=== PATIENT | female | born 1990 | race Caucasian/White ===

== ENCOUNTER 2017-04-16 00:16 | Emergency (ER) | payer SELFPAY ==
[~2017-04-16] VITALS: Ht 165.1 cm; Wt 54.5 kg
[2017-04-16 00:22] VITALS: BP 102/58; PULSE 58; RESP 18; TEMP 98.2; O2SAT 95
[2017-04-16] MEDS ORDERED: TETANUS/DIPHTHERIA TOXOID ADULT 0.5 ML VIAL IM ONE (00:30)
[2017-04-16 00:46] LABS: AUTOMATED NEUTROPHIL # 6.6 TH/MM3 (1.8-7.7); BASOPHIL # 0.1 TH/MM3 (0-0.2); BASOPHIL % 0.7 % (0.0-2.0); EOSINOPHIL # 0.3 TH/MM3 (0-0.4); EOSINOPHIL % 2.1 % (0.0-4.0); MEAN CELL VOLUME 91.3 FL (80.0-100.0); MEAN CORPUSCULAR HGB CONC 35.1 % (32.0-36.0); MEAN PLATELET VOLUME 8.3 FL (7.0-11.0); MONO % 4.7 % (0.0-8.0); MONOCYTE # 0.6 TH/MM3 (0-0.9); NEUT % 48.5 % (16.0-70.0); PLATELET COUNT 315 TH/MM3 (150-450); RED BLOOD COUNT 4.38 MIL/MM3 (4.00-5.30); RED CELL DISTRIBUTION WIDTH 12.7 % (11.6-17.2); WHITE BLOOD COUNT 13.6 TH/MM3 (4.0-11.0)
[2017-04-16 01:03] LABS: ALBUMIN 4.1 GM/DL (3.4-5.0); ALT (GPT) 25 U/L (10-53); AST (GOT) 33 U/L (15-37); BLOOD UREA NITROGEN 14 MG/DL (7-18); CALCIUM 8.5 MG/DL (8.5-10.1); CHLORIDE 108 MEQ/L (98-107); CREATININE 0.99 MG/DL (0.50-1.00); GLOMERULAR FILTRATION RATE 67 ML/MIN (>89); GLUCOSE,RANDOM 106 MG/DL (74-106); SODIUM (NA) 139 MEQ/L (136-145)
[2017-04-16 01:11] LABS: BASOPHILS 1 % (0-2); LYMPHOCYTES 33 % (9-44); MONOCYTES 1 % (0-8); POLYS (SEG NEUTROPHILS) 61 % (16-70)
[2017-04-16 01:13] LABS: ALKALINE PHOSPHATASE 52 U/L (45-117); TOTAL BILIRUBIN ADULT 0.2 MG/DL (0.2-1.0); TOTAL PROTEIN 8.1 GM/DL (6.4-8.2)
[2017-04-16] MEDS ORDERED: LORazepam 2 MG/ML VIAL IV PUSH ONE (01:15)
[2017-04-16] MEDS ORDERED: HALOPERIDOL LACTATE 5 MG/ML AMP IV ONE (01:15)
[2017-04-16 01:16] LABS: ACETAMINOPHEN LESS THAN 2.0 MCG/ML (10.0-30.0)
[2017-04-16 01:25] LABS: NEUTROPHIL # MANUAL DIFF 8.3 TH/MM3 (1.8-7.7)
--- NOTE | 2017-04-16 01:34 | RADRPT ---
EXAM DATE/TIME: 04/16/2017 00:55 [place] COMPARISON: No previous studies available for comparison. INDICATIONS : Right forearm pain after hitting arm against a drain. MEDICAL HISTORY : None. SURGICAL HISTORY : None. ENCOUNTER: Initial ACUITY: 1 day PAIN SCORE: Non-responsive. LOCATION: Right forearm. FINDINGS: 2 views of the right forearm demonstrate no fracture or dislocation. There is soft tissue irregularit y along the medial and posterior proximal aspect of the forearm with likely an overlying bandage in p lace. There is subcutaneous air along the posterior aspect of the elbow joint. No radiopaque foreign body is seen. CONCLUSION: 1. No fracture is identified. 2. Soft tissue abnormality along the medial and posterior aspect of the proximal forearm with subcuta neous air. No radiopaque foreign body is seen. Willis Quevedo MD on April 16, 2017 at 1:30 Board Certified Radiologist. This report was verified electronically.
--- NOTE | 2017-04-16 02:02 | PD ---
HPI Chief Complaint: Fall Time Seen by Provider: 23:08 Travel History International Travel<30 days: No Contact w/Intl Traveler<30days: No Traveled to known affect area: No History of Present Illness HPI 27-year-old white female presents emergency department by EMS for evaluation of the right arm laceration. The patient is heavily intoxicated and allegedly had fallen down. She is uncooperative to history and exam. Patient is unable to render history allow a physical due to her alcohol intoxication. PFSH Past Medical History Medical History: Denies Significant Hx Tetanus Vaccination: > 5 Years Influenza Vaccination: No ?: Not LMP: 3 weeks ago Past Surgical History Section: Yes Social History Alcohol Use: Yes Tobacco Use: Yes Substance Use: Yes (mj) Allergies-Medications (Allergen,Severity, Reaction): Coded Allergies: No Known Allergies (Unverified , 04/16/17) Reported Meds & Prescriptions Reported Meds & Active Scripts Active Keflex (Cephalexin) 500 Mg Cap 500 Mg PO Q6H 7 Days Review of Systems ROS Limitations: Intoxication Physical Exam Narrative GENERAL: Well-developed, well-nourished in no acute distress. Nontoxic appearing. Smells of EtOH and appears heavily intoxicated with slurred speech. Patient is uncooperative. HEAD: Normocephalic, atraumatic. No evidence of head trauma. EYES: Pupils equal round and reactive. Extraocular motions intact. No scleral icterus. No injection or drainage. ENT: TMs clear without erythema. The external auditory canals clear. Nose: clear . Posterior pharynx is pink and moist. No tonsillar edema or exudate. Uvula midline. Airway patent. NECK: Trachea midline.Supple, nontender, moves head freely. No central bony tenderness or spasm. CARDIOVASCULAR: Regular rate and rhythm without murmurs, gallops, or rubs. RESPIRATORY: Clear to auscultation. Breath sounds equal bilaterally. No wheezes , rales, or rhonchi. GASTROINTESTINAL: Abdomen soft, non-tender, nondistended. No hepato-splenomegaly , or palpable masses. No guarding. EXTREMITIES: No clubbing, cyanosis, or edema. No joint tenderness, effusion, or edema noted. Right arm laceration with a dressing in place. BACK: Nontender without deformity or crepitance. No flank tenderness. Data Data Last Documented VS Vital Signs Date Time Temp Pulse Resp B/P (MAP) Pulse Ox O2 Delivery O2 Flow Rate FiO2 04/16/17 00:22 98.2 58 18 102/58 (73) 95 Orders Orders Complete Blood Count With Diff (04/16/17:28) Comprehensive Metabolic Panel (04/16/17 00:28) Thyroid Stimulating Hormone (04/16/17 00:28) Oximetry (04/16/17 00:28) Iv Access Insert/Monitor (04/16/17:28) Ecg Monitoring (04/16/17:28) Psych Screen (04/16/17 00:28) Drug Screen, Random Urine (04/16/17:28) Forearm (2vws) (04/16/17 ) Tetanus/Diphtheria Tox Adult (Tetanus/Di (04/16/17:30) Ed Urine Pregnancytest Poc (04/16/17 00:28) Alcohol (Ethanol) (04/16/17 00:28) Tylenol (Acetaminophen) (04/16/17:28) Restraints Non-Violent URBANO.Q3H (04/16/17 01:06) Haloperidol Inj (Haldol Inj) (04/16/17 01:15) Lorazepam Inj (Ativan Inj) (04/16/17 01:15) Cefazolin 2 Gm Premix (Ancef 2 Gm Premix (04/16/17 03:15) Labs Laboratory Tests Test 04/16/17 00:30 White Blood Count 13.6 TH/MM3 Red Blood Count 4.38 MIL/MM3 Hemoglobin 14.0 GM/DL Hematocrit 40.0 % Mean Corpuscular Volume 91.3 FL Mean Corpuscular Hemoglobin 32.0 PG Mean Corpuscular Hemoglobin Concent 35.1 % Red Cell Distribution Width 12.7 % Platelet Count 315 TH/MM3 Mean Platelet Volume 8.3 FL Neutrophils (%) (Auto) 48.5 % Lymphocytes (%) (Auto) 44.0 % Monocytes (%) (Auto) 4.7 % Eosinophils (%) (Auto) 2.1 % Basophils (%) (Auto) 0.7 % Neutrophils # (Auto) 6.6 TH/MM3 Lymphocytes # (Auto) 6.0 TH/MM3 Monocytes # (Auto) 0.6 TH/MM3 Eosinophils # (Auto) 0.3 TH/MM3 Basophils # (Auto) 0.1 TH/MM3 CBC Comment AUTO DIFF Differential Total Cells Counted 100 Neutrophils % (Manual) 61 % Lymphocytes % 33 % Monocytes % 1 % Eosinophils % 4 % Basophils % 1 % Neutrophils # (Manual) 8.3 TH/MM3 Differential Comment FINAL DIFF MANUAL Platelet Estimate NORMAL Platelet Morphology Comment NORMAL Red Cell Morphology Comment NORMAL Blood Urea Nitrogen 14 MG/DL Creatinine 0.99 MG/DL Random Glucose 106 MG/DL Total Protein 8.1 GM/DL Albumin 4.1 GM/DL Calcium Level 8.5 MG/DL Alkaline Phosphatase 52 U/L Aspartate Amino Transf (AST/SGOT) 33 U/L Alanine Aminotransferase (ALT/SGPT) 25 U/L Total Bilirubin 0.2 MG/DL Sodium Level 139 MEQ/L Potassium Level 3.3 MEQ/L Chloride Level 108 MEQ/L Carbon Dioxide Level 21.0 MEQ/L Anion Gap 10 MEQ/L Estimat Glomerular Filtration Rate 67 ML/MIN Thyroid Stimulating Hormone 3rd Gen 2.080 uIU/ML Acetaminophen Level LESS THAN 2.0 MCG/ML Ethyl Alcohol Level 377 MG/DL MDM Medical Decision Making Medical Screen Exam Complete: Yes Emergency Medical Condition: Yes Medical Record Reviewed: Yes Differential Diagnosis MDM: High Differential diagnoses: Fracture, sprain, strain, dislocation, contusion, neurovascular injury, intoxication Narrative Course Patient is uncooperative to her history, physical and evaluation today. Due to the patient's heavy alcohol intake she will be placed in nonviolent restraints and given Haldol 5 mg IV and Ativan 1 mg IV. Patient placed on a monitor. Test status updated. Patient was given 2 g of Ancef IV. Patient has had good response to the Haldol Ativan. She is now compliant for wound care and suturing. Her dressing is removed and this reveals a large gaping laceration to the volar proximal third of the forearm as well as 2 lacerations over the elbow region. The laceration over the proximal third of the forearm has extruding muscle tissue. There are some superficial foreign bodies. The patient will be allowed to sleep it off here in the ER when she exhibits sobriety the patient will be discharged. This is alcohol intoxication, right arm lacerations Procedures Procedure Narrative LACERATION LOCATION: Right proximal forearm LENGTH: 10 cm NUMBER OF STITCHES/WILIAN: 30 REPAIR: The area of the laceration was prepped with Betadine and sterilely draped. The laceration was infiltrated with 1% lidocaine with epinephrine. There are superficial dirt foreign bodies within the wound. There is also muscle involvement. There is a single bleeding vessel which has been ligated with 4-0 Vicryl. The wound was copiously irrigated and explored without evidence of tendon injury or neurovascular injury. The foreign bodies have been removed. The muscle belly is closed using 3-0 Vicryl. The subcutaneous tissues are approximated using 3-0 Vicryl. The wound was closed using wilian. This was a intermediate 3 layer repair. A sterile dressing was applied. The patient was advised to keep the dressing clean and dry. Patient tolerated the procedure well. LACERATION LOCATION: Left elbow LENGTH: 3 cm NUMBER OF STITCHES/WILIAN: 6 REPAIR: The area of the laceration was prepped with Betadine and sterilely draped. The laceration was infiltrated with 1% lidocaine with epinephrine. The wound was copiously irrigated and explored without evidence of foreign body , tendon injury or neurovascular injury. The wound was closed using wilian. This was a single layer repair. A sterile dressing was applied. The patient was advised to keep the dressing clean and dry. Patient tolerated the procedure well. LACERATION LOCATION: Left elbow LENGTH: 3 cm NUMBER OF STITCHES/WILIAN: 7 REPAIR: The area of the laceration was prepped with Betadine and sterilely draped. The laceration was infiltrated with 1% lidocaine with epinephrine. The wound was copiously irrigated and explored without evidence of foreign body , tendon injury or neurovascular injury. 3 4-0 Vicryl was placed in the wound to close the subcutaneous tissues. the wound was closed using wilian. This was a intermediate 2 layer repair. A sterile dressing was applied. The patient was advised to keep the dressing clean and dry. Patient tolerated the procedure well. Diagnosis Primary Impression: Alcohol intoxication Additional Impression: Right arm lacerations Patient Instructions: General Instructions Additional Instructions: Rest. Elevation. Tylenol and Advil for pain. Daily wound care with soap, water, Neosporin. Sutures out in 10 days. Keflex. Recheck in 2-3 days with a primary care doctor or a clinic. Return to the ER if any problems. Med/Other Pt SpecificInfo: Prescription(s) given Scripts Cephalexin (Keflex) 500 Mg Cap 500 MG PO Q6H for Infection for 7 Days, #28 CAP 0 Refills Prov: Gustavo Butler MD 04/16/17 Disposition: 01 DISCHARGE HOME Condition: Stable Car Mchugh Apr 16, 2017 02:02
[2017-04-16] MEDS ORDERED: ceFAZolin 2 GM PREMIX 50 ML IV ONE (03:15)
[2017-04-16] MEDS ORDERED: CEPH-460 PO (03:21)
[2017-04-16 05:00] VITALS: BP 108/56; PULSE 59; RESP 14; O2SAT 95
== END 2017-04-16 10:21 | disposition home or self-care (01) ==
LOC: NEPD 00:16
DX: F10.129 Alcohol abuse with intoxication, unspecified (principal); S51.821A Laceration with foreign body of right forearm, initial encounter; S51.011A Laceration without foreign body of right elbow, initial encounter; Y90.8 Blood alcohol level of 240 mg/100 ml or more; W18.30XA Fall on same level, unspecified, initial encounter; Z72.0 Tobacco use; Z23 Encounter for immunization
CPT/HCPCS: 12002; 12032; 13121; 13122; 73090; 80053; 80307; 84443; 85007; 85027; 90471; 90714; 96365; 96366; 96375; 99284; J0690; J1630; J2060; 12004

== ENCOUNTER 2017-04-29 14:21 | Emergency (ER) | payer SELFPAY ==
[~2017-04-29 14:21] MED LIST: CEPH-460 PO
[2017-04-29 14:39] VITALS: BP 127/60; PULSE 81; RESP 16; TEMP 98.2; O2SAT 98
--- NOTE | 2017-04-29 14:45 | PD ---
HPI Chief Complaint: Wound/Suture/Staple Re-Check Time Seen by Provider: 14:37 Travel History International Travel<30 days: No Contact w/Intl Traveler<30days: No Traveled to known affect area: No History of Present Illness HPI 27-year-old female presents emergency department for staple removal from her right elbow from 2 large laceration sustained approximately 14 days ago. Patient reports no pain at the site. She reports no limitations in range of motion of the right elbow. She denies any drainage. No fever chills. No other symptoms to report. PFSH Past Medical History Medical History: Denies Significant Hx Past Surgical History Section: Yes Social History Alcohol Use: Yes Tobacco Use: Yes Substance Use: Yes (mj) Allergies-Medications (Allergen,Severity, Reaction): Coded Allergies: No Known Allergies (Unverified , 04/16/17) Reported Meds & Prescriptions Reported Meds & Active Scripts Active Keflex (Cephalexin) 500 Mg Cap 500 Mg PO Q6H 7 Days Review of Systems Except as stated in HPI: all other systems reviewed are Neg Physical Exam Narrative GENERAL: Well-nourished, well-developed female patient in no acute distress. SKIN: Focused skin assessment warm/dry. HEAD: Normocephalic. EYES: No scleral icterus. No injection or drainage. NECK: Supple, trachea midline. No JVD or lymphadenopathy. CARDIOVASCULAR: Regular rate and rhythm without murmurs, gallops, or rubs. RESPIRATORY: Breath sounds equal bilaterally. No accessory muscle use. MUSCULOSKELETAL: No cyanosis, or edema. Patient has full flexion-extension of the right elbow. Well approximated lacerations with wilian intact. BACK: Nontender without obvious deformity. No CVA tenderness. Data Data Last Documented VS Vital Signs Date Time Temp Pulse Resp B/P (MAP) Pulse Ox O2 Delivery O2 Flow Rate FiO2 04/29/17 14:39 98.2 81 16 127/60 (82) 98 Orders Orders Ed Discharge Order (04/29/17 14:44) [facility] Medical Decision Making Medical Screen Exam Complete: Yes Emergency Medical Condition: Yes Medical Record Reviewed: Yes Differential Diagnosis Staple removal versus suture removal versus wound dehiscence versus infected wound versus healed wound Narrative Course 27-year-old female presents emergency department for removal of iwlian from her right elbow. Wounds appear well-healed. They are well approximated. [place] are removed without difficulty. Patient tolerated this well. Patient is counseled care. She is discharged at this time. Diagnosis Primary Impression: Encounter for removal of sutures Med/Other Pt SpecificInfo: No Change to Meds Disposition: 01 DISCHARGE HOME Condition: Stable Zoe Pierce Apr 29, 2017 14:45
== END 2017-04-29 14:22 | disposition home or self-care (01) ==
LOC: NED 14:21
DX: Z48.02 Encounter for removal of sutures (principal); F12.90 Cannabis use, unspecified, uncomplicated; Z72.0 Tobacco use
CPT/HCPCS: 99281